=== PATIENT | male | born 1980 | race Caucasian/White ===

== ENCOUNTER 2018-06-09 06:12 | Day surgery (SDC) | payer OTHER, BC ==
[2018-06-09] MEDS ORDERED: MIDAZOLAM 1 MG/ML 2 ML INJ ×3 (08:56)
[2018-06-09] MEDS ORDERED: FENTAnyl 50 MCG/ML VIAL (08:57)
[2018-06-09] MEDS ORDERED: ATROPINE 1 MG/10 ML SYRINGE (08:58)
== END 2018-06-09 11:38 | disposition home or self-care (01) ==
LOC: GIL 06:12
DX: Z83.71 Family history of colonic polyps (principal); K64.4 Residual hemorrhoidal skin tags; D12.3 Benign neoplasm of transverse colon; Z80.0 Family history of malignant neoplasm of digestive organs; D12.8 Benign neoplasm of rectum
CPT/HCPCS: 45380; 88305